=== PATIENT | female | born 1985 | race Caucasian/White ===

== ENCOUNTER 2019-08-10 07:27 | Inpatient (IN) | payer OTHER ==
--- NOTE | 2019-08-09 21:00 | PDOC.LDHP ---
Labor and Delivery H&P Chief complaint: scheduled induction HPI: 34 yo @ 38w2d by LMP c/w 9 week CRL who presents for IOL due to A2DM on Metformin 1000 mg QHS. Antepartum course otherwise wnl. Current gestational age (weeks): 38 Due date: 08/22/19 Dating criteria: last menstrual period Grav: 2 Para: 1 OB History Details: , 9 lb Current complications: gestational diabetes Abnormal US findings: No Past Medical History: Denies Current medications: pre- vitamins, other (Metformin 1000 mg QHS) Previous surgical history: other (Foot surgery) Social history: none - Physical Exam Vital signs reviewed and normal: yes General: NAD Heart: RRR Lungs: nonlabored breathing Abdomen: gravid Extremeties: no edema FHT: category 1 (150s, mod xenia, +accels, no decels) [place] contractions every: uterine irritability - Vaginal Exam cm dilated: 4 (cephalic, AROM clear ) Effacement: 50% Station: -2 - OB Labs Blood type: A RH: positive Antibody Screen: negative HIV: negative RPR: negative HEPSAg: negative 1 hour GCT: positive 3 hour GTT: abnormal GBS: negative Urine drug screen: negative Rubella: immune Additional Labs: SS and carrier screening wnl - Assessment 38w2d IUP A2DM IOL - Plan Plan: admit to L&D, informed consent obtained, anesthesia consult for pain management -: s/p AROM, Start pitocin for IOL
[2019-08-10] MEDS ORDERED: Promethazine HCl 25 MG/ML VIAL IM PRN ×2 (08:04→11:05)
[2019-08-10] MEDS ORDERED: Butorphanol Tartrate 1 MG/ML VIAL SLOW IVP PRN (08:04)
[2019-08-10] MEDS ORDERED: NS / Oxytocin 40 units/1000ml 1,000 ML IV PRN (08:04)
[2019-08-10] MEDS ORDERED: Ibuprofen 800 MG TAB PO PRN (08:04)
[2019-08-10] MEDS ORDERED: HYDROcodone/Acetaminophen 5/325 mg Tablet PO PRN ×2 (08:04→14:33)
[2019-08-10] MEDS ORDERED: Lidocaine 1% (PF) 30 ML VIAL SC PRN (08:04)
[2019-08-10] MEDS ORDERED: Carboprost 250 MCG/ML AMP IM PRN (08:04)
[2019-08-10] MEDS ORDERED: hydrALAZINE 20 MG/ML VIAL SLOW IVP PRN ×2 (08:04→14:33)
[2019-08-10] MEDS ORDERED: Methylergonovine 0.2 MG/ML VIAL IM PRN ×2 (08:04→14:33)
[2019-08-10] MEDS ORDERED: Acetaminophen 500 MG TAB PO PRN (08:04)
[2019-08-10] MEDS ORDERED: Lactated Ringer's 1,000 ML IV SCH (08:04)
[2019-08-10] MEDS ORDERED: Diphenoxylate HCl/Atropine Tablet PO PRN (08:04)
[2019-08-10] MEDS ORDERED: Ondansetron PF 4 MG/2 ML Vial IVP PRN ×2 (08:04→11:05)
[2019-08-10] MEDS ORDERED: Misoprostol 200 MCG TAB PR PRN (08:04)
[2019-08-10 08:16] LABS: Hemoglobin 14.5 g/dL (12.0-16.0); Mean Corpuscular HGB CONC 34.7 g/dL (32.0-36.0); Mean Corpuscular Hemoglobin 31.4 pg (27.0-31.0); Mean Corpuscular Volume 90.4 fL (78.0-98.0); Mean Platelet Volume 8.1 fL (7.4-10.4); Platelet Count 191 thou/uL (130-400); RBC Distribution Width 12.4 % (11.5-14.5); Red Blood Cell (RBC) Count 4.61 mill/uL (4.20-5.40); White Blood Cell (WBC) Count 9.9 thou/uL (4.8-10.8)
[2019-08-10] MEDS: NS w/ Oxytocin 10 units 500 ML IV SCH (08:16)
[2019-08-10] MEDS ORDERED: NS w/ Oxytocin 10 units 500 ML ONE (08:23)
[2019-08-10 08:51] VITALS: BMI 27.1
[2019-08-10 08:53] LABS: Syphilis Antibody Nonreactive (Nonreactive); Syphilis Antibody Index 0.03 S/CO (<1.00 Non-Reactive)
[2019-08-10 08:58] LABS: HBSAg Index 0.12 S/CO (0-0.99); HIV (1/2) Antibody/Antigen Non-Reactive (NonReactive); HIV 1/2 INDEX 0.12 S/CO (<1.00); Hep B Surf Ag Non-Reactive S/CO (NonReactive)
[2019-08-10] MEDS ORDERED: Fentanyl 4 mcg/Bup 0.1% Cadd 100 ML ONE (09:48)
[2019-08-10] MEDS ORDERED: Fentanyl 100 MCG/2 ML VIAL ONE (09:57)
[2019-08-10] MEDS ORDERED: Fentanyl 100 MCG/2 ML VIAL EPIDURAL SCH (10:15)
[2019-08-10] MEDS ORDERED: Bupivacaine 0.25% HCL 30 ML VIAL ONE (11:00)
[2019-08-10] MEDS ORDERED: Lactated Ringer's 500 ML IV PRN (11:05)
[2019-08-10] MEDS ORDERED: ePHEDrine/0.9% NaCl/PF SYRINGE 50 mg/10 ml SLOW IVP PRN (11:05)
[2019-08-10] MEDS ORDERED: Acetaminophen 325 MG TAB PO PRN (11:05)
[2019-08-10] MEDS ORDERED: diphenhydrAMINE 50 MG/ML VIAL IVP PRN (11:05)
[2019-08-10] MEDS ORDERED: Naloxone HCl 0.4 mg/ml Vial IVP PRN ×2 (11:05)
[2019-08-10] MEDS ORDERED: Fentanyl 4 mcg/Bupivacaine 0.1% Cassette 100 ML EPIDURAL SCH (11:15)
[2019-08-10] MEDS ORDERED: Communication Order-Pharmacy FS SCH (11:15)
--- NOTE | 2019-08-10 12:18 | PDOC.OPDEL ---
OB Operative/Delivery Note Delivery Dr/Surgeon: Gale De La Cruz DO Pre-Delivery Diagnosis: medically indicated induction Procedure/Post Delivery Dx: spontaneous vaginal delivery Weeks gestation: 38 Anesthesia: epidural - Findings A Sex: male - 1 min: 8 - 5 min: 9 - Additional Findings/Plan Placenta delivered: spontaneous Repaired Obstetrical Laceration: 1st degree Estimated blood loss: QBL 50 cc Compilations/Other Findings: in JANET position Normal appearing placenta Post delivery plan: routine recovery
[2019-08-10] MEDS ORDERED: diphenhydrAMINE 25 MG CAP PO PRN (14:33)
[2019-08-10] MEDS ORDERED: Bisacodyl 10 MG SUPP PR PRN (14:33)
[2019-08-10] MEDS ORDERED: Benzocaine-Menthol 82.5 ML CAN TOP PRN (14:33)
[2019-08-10] MEDS ORDERED: Milk Of Magnesia 30 ML UDCUP PO PRN (14:33)
[2019-08-10] MEDS ORDERED: NS / Oxytocin 40 units/1000ml 1,000 ML IV SCH (14:33)
[2019-08-10] MEDS ORDERED: Lanolin Ointment 7 GM TUBE TOP PRN (14:33)
[2019-08-10] MEDS ORDERED: Preparation H Ointment 28 GM TUBE PR PRN (14:33)
[2019-08-10] MEDS: Ibuprofen 800 MG TAB PO SCH ×2 (15:20→21:23)
[2019-08-10] MEDS: Docusate Calcium (SURFAK) 240 MG CAP PO SCH (21:23)
[2019-08-11] MEDS: Ibuprofen 800 MG TAB PO SCH ×2 (05:56→14:04)
--- NOTE | 2019-08-11 06:16 | PDOC.PP ---
Post Progress Note Post Day #: 1 Subjective: Patient doing well. No significant overnight events. Patient tolerating PO, ambulating without difficulty, and passing flatus. Patient desires to go home today. PO intake tolerated: yes Flatus: yes Ambulation: yes Vital Signs (12 hours) Temp Pulse Resp BP Pulse Ox 08/11/19 03:35 98.1 F 82 18 123/72 95 08/10/19 23:42 98.2 F 73 16 113/72 97 08/10/19 19:36 98.1 F 89 16 116/71 98 Weight Weight 73.936 kg - Physical Examination General: NAD Cardiovascular: RRR Respiratory: non-labored breathing Abdominal: + bowel sounds, lochia (minimal), no distention, appropriately TTP Fundus firm & at: below umbilicus Skin: no rash Neurological: no gross focal deficits Psychiatric: A&Ox3, normal affect Result Diagrams: 08/10/19 08:07 Additional Labs: Post Labs Blood Type A POSITIVE 08/10/19 08:07 Hep Bs Antigen Non-Reactive S/CO (NonReactive) 08/10/19 08:07 (1) GDM, class A2 Code(s): O24.419 - GESTATIONAL DIABETES MELLITUS IN , UNSP CONTROL Status: Acute (2) Vaginal delivery Code(s): O80 - ENCOUNTER FOR FULL-TERM UNCOMPLICATED DELIVERY Status: Acute - Assessment/Plan Routine PP care - PPD #1 - Routine care - Encourage ambulation - Continue - Rh pos, Rubella immune - GBS neg A2GDM - Will need 2h GTT 6 wks PP Dispo: Patient desires to go home today. Plan for d/c home today pending ' s lab work.
[2019-08-11] MEDS ORDERED: Prenatal Vitamin 1 TAB PO SCH (09:00)
[2019-08-11] MEDS: Docusate Calcium (SURFAK) 240 MG CAP PO SCH (09:07)
[2019-08-11] MEDS: NS w/ Oxytocin 10 units 500 ML IV SCH (09:08)
[2019-08-11 16:08] VITALS: BP 122/72; TEMP 98.3
== END 2019-08-11 16:30 | disposition home or self-care (01) | DRG 807 ==
LOC: L&D 07:27 → 3SW 15:11 → EDSTATUS 08-22 14:51
PROVIDERS: ADMIT Obstetrics & Gynecology; ATTEND Obstetrics & Gynecology
PROC: 10E0XZZ Delivery of Products of Conception, External Approach (ICD-10-PCS; principal; 2019-08-10)
PROC: 10907ZC Drainage of Amniotic Fluid, Therapeutic from Products of Conception, Via Natural or Artificial Opening (ICD-10-PCS; 2019-08-10)
PROC: 3E033VJ Introduction of Other Hormone into Peripheral Vein, Percutaneous Approach (ICD-10-PCS; 2019-08-10)
PROC: 0HQ9XZZ Repair Perineum Skin, External Approach (ICD-10-PCS; 2019-08-10)
DX: O24.425 Gestational diabetes mellitus in childbirth, controlled by oral hypoglycemic drugs (principal); Z37.0 Single live birth; O70.0 First degree perineal laceration during delivery; Z3A.38 38 weeks gestation of pregnancy; Z79.84 Long term (current) use of oral hypoglycemic drugs; Z79.899 Other long term (current) drug therapy
CPT/HCPCS: 36415; 85027; 86780; 86850; 86900; 86901; 87340; 87389; J2590; J3010; S0020